=== PATIENT | female | born 1950 | race Caucasian/White ===

== ENCOUNTER 2017-05-05 16:07 | Observation (INO) ==
[2017-05-05] MEDS ORDERED: Aspirin 81 MG TAB.CHEW PO ONE (16:39)
[2017-05-05] MEDS ORDERED: Nitroglycerin 0.4 MG TAB.SUBL SL ONE (16:39)
--- NOTE | 2017-05-05 17:08 | Emergency Department Note ---
Disposition Clinical Impression: Lightheaded Chest pain Qualifiers: Chest pain type: unspecified Qualified Code(s): R07.9 - Chest pain, unspecified Diabetes Qualifiers: Diabetes mellitus type: type 2 Diabetes mellitus complication status: with unspecified complications Diabetes mellitus headrig sawyer insulin use: without headrig sawyer use Qualified Code(s): E11.8 - Type 2 diabetes mellitus with unspecified complications Hyperlipidemia Qualifiers: Hyperlipidemia type: unspecified Qualified Code(s): E78.5 - Hyperlipidemia, unspecified Hypertension Qualifiers: Hypertension type: unspecified Qualified Code(s): I10 - Essential (primary) hypertension Disposition: Admitted As Inpatient Condition: Fair Time of Disposition: 19:00 General Adult HPI - General Chief complaint: ED Dizziness Stated complaint: dizziness Time Seen by Provider: 05/05/17 16:11 Source: patient Mode of arrival: ambulatory Limitations: no limitations Nursing Notes Reviewed: Yes Vital Signs Reviewed: Yes - History of Present Illness HPI Narrative: 67-year-old female presents to the ED complaining of left upper quadrant burning as well as lightheadedness. Patient has a medical history of hypertension, diabetes and no cardiac issues. She did have a cardiac stress done done in 2016 which is normal. Patient stated that this happened patient and started about 3 weeks ago. Patient states recently she has changed primary care physicians as her normal one has retired. Upon seeing a new primary care physician she states that they were taken off her Ativan cold turkey which she is taking for many years for anxiety. She noticed since then she has noticed her symptoms she is complaining of today. Patient states she feels like she is "lightheaded" stating that the room is not spinning and she does not feel like she is spinning she notices this is occurring while she is eating and has what worsens or but it is a constant feeling. She does not know any nausea or vomiting or near syncope events. She states that she has not fell or had a trauma recently. She does state that she has a burning sensation in her left upper quadrant that has not gone away or does not tie with eating food. Patient states the pain does not radiate and is a 2 out of 10 she has not taken anything for the pain. She states that this does not feel like her gastric reflux disease. Patient states she has no pulmonary disease or cardiac disease that she knows of. She does check her blood pressure regularly and has noted it has been higher than normal in the 180s systolic over 100 diastolic. Patient is not having chest pain or shortness of breath this time. She states no headache or blurry vision, abdominal pain and constipation and diarrhea no pain with urination no pain or tingling going on the arms or legs. Patient having other complaints at this time. Pain Scale: 0 - Related Data Previous Rx's Medication Instructions Recorded Hydrocodone/Acetaminophen [Vicodin 1 each PO Q4H PRN #12 tab 07/25/16 Es 7.5-300 mg Tablet] Allergies Allergy/AdvReac Type Severity Reaction Status Date / Time No Known Allergies Allergy Verified 07/25/16 17:27 Review of Systems: Temperature is systems done and negative unless otherwise stated in history of present illness. All systems ED: reviewed and negative except as stated. Review of Systems: As Per HPI Constitutional: Denies: fever, weakness, weight change Cardiovascular: Denies: chest pain, dyspnea on exertion Respiratory: Denies: cough, dyspnea, wheezes Gastrointestinal: Denies: abdominal pain, nausea, vomiting Neurological: Denies: headache, weakness, numbness, paresthesias Endocrine: Denies: fatigue Past Medical History - Past Medical History Medical history: Reports: arthritis, diabetes, GERD, hyperlipidemia, hypertension, other [employer] history: Reports: bilateral tubal ligation - Social History Smoking Status: Never smoker Smokeless Tobacco Status: No Alcohol use: Reports: none Drug use: Reports: none Physical Exam - General Limitations: no limitations General appearance: alert - Head Head exam: atraumatic, normocephalic, normal inspection - Eye Eye exam: Present: normal appearance, PERRL, EOMI - ENT ENT exam: normal exam, normal oropharynx, mucous membranes moist - Neck Neck exam: Present: normal inspection, full ROM, trachea midline - Chest Chest inspection: Present: normal inspection - Respiratory Respiratory exam: Present: normal lung sounds bilaterally. Absent: respiratory distress, wheezes, accessory muscle use - Cardiovascular Cardiovascular exam: Present: regular rate, normal rhythm, normal heart sounds - Abdominal Exam Abdominal exam: Present: soft, Non-Tender. Absent: tenderness, distention, guarding, rebound, rigidity - Extremities Exam Extremities exam: Present: normal inspection, full ROM. Absent: tenderness, pedal edema - Back Exam Back exam: Present: normal inspection, full ROM. Absent: tenderness, CVA tenderness (R), CVA tenderness (L) - Neurological Exam Neurological exam: Present: alert, oriented X3, CN II-XII intact - Skin Skin exam: Present: warm, dry, intact, normal color Course Course Narrative: 67-year-old male presents to the ED for lightheadedness and left upper quadrant burning. Due to her vague symptoms as well as lightheadedness we decided to a cardiac evaluation was needed. We did an EKG, chest x-ray as well as basic labs including troponin, CMP as well as a CBC. We will also given nitroglycerin trial as she did have hydrated her blood pressure to see if that will help with her abdominal pain as well as her hypertension. We will give her aspirin as this could be cardiac in etiology. Patient is okay with this plan. Due to the symptoms and not having a cardiac history we will most likely admit the patient for further evaluation. We did explain this to the patient and she is okay with this plan. Vital Signs Temperature 98.9 F 05/05/17 16:21 Pulse Rate 92 05/05/17 16:21 Respiratory Rate 16 05/05/17 16:21 Blood Pressure 199/97 05/05/17 16:21 O2 Sat by Pulse Oximetry 96 05/05/17 16:21 Temperature 98.9 F 05/05/17 16:21 Pulse Rate 80 05/05/17 18:37 Respiratory Rate 16 05/05/17 19:20 Blood Pressure 166/86 05/05/17 19:20 O2 Sat by Pulse Oximetry 95 05/05/17 18:37 Oxygen Delivery Oxygen Delivery Room Air Medical Decision Making - [facility] Narrative Medical decision making narrative: 67-year-old female presents the ED with left upper quadrant pain as well as lightheadedness. After evaluating her more this is no syncopal cause were no signs of presyncope this is lightheadedness. There were no signs of vertigo. This most likely is due to her being hypertensive as we did have one documented blood pressure of 210/110. She has also recently changed her medications by adding a third high blood pressure medication and also cold turkey stopping Ativan approximately 3 weeks ago. I think a lot of this could be due to anxiety and causing the high blood pressure causing her lightheadedness. We cannot rule out here in the emergency department a cardiac event or angina. We did give her nitroglycerin emergency department which did help with her left upper quadrant pain as well as lower her blood pressure to 170/90. Patient states that she did feel better after taking that. We also gave her one aspirin. Chest x-ray was normal EKG had no acute findings. Her labs overall were within normal limits. I spoke with the hospitalist who agreed to accept the patient for further evaluation to the hospitalist service. I explained this to the patient. She is currently in no pain at this time. And her pressure is doing much better 170/90. Patient is okay with being admitted. Patient admitted to the hospitalist service in stable condition with normal vital signs outside of her hypertension. Chest X-Ray 05/05/17 16:39 IMPRESSION: No evidence of acute cardiopulmonary disease. D/ / Sourav Bonds MD / Sourav Bonds MD Interpreting Provider: Sourav Bonds MD - Medical Records Medical records reviewed: Yes I reviewed the patient's medical records. - Lab Data Lab results reviewed: Yes I reviewed the patient's lab results. Result diagrams: 05/05/17 16:54 05/05/17 16:54 Lab Results 05/05/17 05/05/17 05/05/17 Range/Units 16:54 16:54 16:54 WBC 10.2 (4.3-11.1) K/mcL RBC 5.22 H (3.82-4.97) M/mcL Hgb 15.1 (11.5-15.4) g/dL Hct 46.0 H (35.3-44.9) % MCV 88.1 (83.0-100.0) fL MCH 28.9 (28.0-33.3) pg MCHC 32.8 (31.6-35.5) g/dL RDW 13.3 (11.5-14.5) % Plt Count 265 (140-400) K/mcL MPV 9.3 L (9.4-12.4) fL Immature Gran % 0.6 (0-4) % Seg Neutrophils % 60.6 % Lymphocytes % 26.6 % Monocytes % 6.8 % Eosinophils % 4.1 % Basophils % 1.3 % Neutrophils # 6.2 (1.6-8.9) K/mcL Lymphocytes # 2.7 (0.6-4.6) K/mcL Monocytes # 0.7 (0.0-1.3) K/mcL Eosinophils # 0.4 (0.0-0.6) K/mcL Basophils # 0.1 (0.0-0.2) K/mcL PT 11.6 (9.4-12.1) Seconds INR 1.1 APTT 28.8 (26.0-36.0) Seconds Sodium 137 (136-145) mEq/L Potassium 3.7 (3.5-4.5) mEq/L Chloride 98 (98-109) mEq/L Carbon Dioxide 27 (19-29) mEq/L BUN 15 (7-20) mg/dL Creatinine 0.97 (0.57-1.11) mg/dL Est GFR ( Amer) > 60 (> 60) Est GFR (Non-Af Amer) 58 L (> 60) BUN/Creatinine Ratio 15 (6-26) Glucose 147 H (70-99) mg/dL Calculated Osmolality 288 (280-300) Calcium 9.6 (8.6-10.8) mg/dL Total Bilirubin 0.6 (0.2-1.2) mg/dL Direct Bilirubin 0.3 (0.0-0.5) mg/dL Indirect Bilirubin 0.3 (0.0-1.2) mg/dL AST 59 H (5-34) Units/L ALT 42 (0-55) Units/L Alkaline Phosphatase 82 (38-126) Units/L Troponin I (0-0.03) ng/mL Serum Total Protein 7.8 (6.0-8.3) g/dL Albumin 3.8 (3.5-5.0) g/dL Globulin 4.0 H (2.4-3.5) g/dL Albumin/Globulin Ratio 1.0 L (1.1-2.2) Lipase 14 (8-78) Units/L // Range/Units 16:54 WBC (4.3-11.1) K/mcL RBC (3.82-4.97) M/mcL Hgb (11.5-15.4) g/dL Hct (35.3-44.9) % MCV (83.0-100.0) fL MCH (28.0-33.3) pg MCHC (31.6-35.5) g/dL RDW (11.5-14.5) % Plt Count (140-400) K/mcL MPV (9.4-12.4) fL Immature Gran % (0-4) % Seg Neutrophils % % Lymphocytes % % Monocytes % % Eosinophils % % Basophils % % Neutrophils # (1.6-8.9) K/mcL Lymphocytes # (0.6-4.6) K/mcL Monocytes # (0.0-1.3) K/mcL Eosinophils # (0.0-0.6) K/mcL Basophils # (0.0-0.2) K/mcL PT (9.4-12.1) Seconds INR APTT (26.0-36.0) Seconds Sodium (136-145) mEq/L Potassium (3.5-4.5) mEq/L Chloride (98-109) mEq/L Carbon Dioxide (19-29) mEq/L BUN (7-20) mg/dL Creatinine (0.57-1.11) mg/dL Est GFR ( Amer) (> 60) Est GFR (Non-Af Amer) (> 60) BUN/Creatinine Ratio (6-26) Glucose (70-99) mg/dL Calculated Osmolality (280-300) Calcium (8.6-10.8) mg/dL Total Bilirubin (0.2-1.2) mg/dL Direct Bilirubin (0.0-0.5) mg/dL Indirect Bilirubin (0.0-1.2) mg/dL AST (5-34) Units/L ALT (0-55) Units/L Alkaline Phosphatase (38-126) Units/L Troponin I 0.00 (0-0.03) ng/mL Serum Total Protein (6.0-8.3) g/dL Albumin (3.5-5.0) g/dL Globulin (2.4-3.5) g/dL Albumin/Globulin Ratio (1.1-2.2) Lipase (8-78) Units/L - Radiology Data Radiology results reviewed: Yes I reviewed the patient's radiology results. Chest X-Ray 05/05/17 16:39 IMPRESSION: No evidence of acute cardiopulmonary disease. D/ / Sourav Bonds MD / Sourav Bonds MD Interpreting Provider: Sourav Bonds MD - EKG Data EKG #1 EKG attestation: Yes I reviewed and interpreted this EKG. EKG results narrative: EKG done at 1632 and reviewed on myself and the attending shows normal sinus rhythm at a rate of 92, NJ interval 164, QRS 89, QTC 428 with a normal axis. There are no signs of ST changes, T-wave changes. No signs of heart strain, heart block, hypertrophy. There is no old EKG to compare at this time. Overall impression is normal sinus rhythm with no acute changes. EKG shows normal: sinus rhythm, axis, intervals, QRS complexes, ST-T waves Rate: normal Rhythm: NSR Phillips/QRS: normal When compared to previous EKG there are: previous EKG unavailable Interpretation: no acute changes, normal EKG Attestation Statement - Attestation Attestation: I examined this patient and my medical decision-making was reviewed with the Resident Physician, Dr. Islas. I agree with the documented findings, disposition and treatment plan as described except to the extent set forth below. Patient is a 67-year-old white female with a history of hypertension, hyperlipidemia, and diabetes who presents to the emergency department with a three-week history of intermittent symptoms of epigastric and left upper quadrant burning discomfort that radiates into the chest associated with lightheadedness and "just not feeling well". Patient denies any associated diaphoresis, no syncope or near syncopal events, no nausea or vomiting. Patient states she was recently taken off her Ativan which she had taken chronically and was not tapered on this and instead changed to 2 other medications for sleep. Patient states since his meds were discontinued she has been having all these symptoms and trouble with her blood pressure. Patient was recently just started on an LUDIN inhibitor as well. Patient arrives with appearing uncomfortable, with significantly elevated blood pressure although denies any headaches, visual changes, no slurred speech or focal deficits, and no migratory pain. I agree patient's physical exam findings as documented. Patient's EKG showed slight sinus rhythm with no acute changes, poor R-wave progression but no acute ischemia. There is no old EKG for comparison. Patient received aspirin and nitroglycerin on arrival which improved her blood pressure and resolved her abdominal and chest discomfort. Patient had labs drawn and sent which overall unremarkable and negative troponin. Portal chest x -ray is unremarkable as well. At this time there are concerns for patient with atypical angina with these symptoms as well as her uncontrolled blood pressure. Unclear if the recent discontinuation of her chronic benzodiazepine use may have precipitated some of these events. Patient is pain-free currently with improvement in her vital signs and agrees with admission to the hospital for further cardiac evaluation. Case was discussed with the hospitalist [id number] who accepted the patient for admission for further testing.
[2017-05-05 17:13] LABS: Basophils # 0.1 K/mcL (0.0-0.2); Basophils % 1.3 %; Eosinophils # 0.4 K/mcL (0.0-0.6); Eosinophils % 4.1 %; Hemoglobin 15.1 g/dL (11.5-15.4); Immature Granulocytes % 0.6 % (0-4); Lymphocytes # 2.7 K/mcL (0.6-4.6); Lymphocytes % 26.6 %; Mean Corpuscular HGB Conc 32.8 g/dL (31.6-35.5); Mean Corpuscular Hemoglobin 28.9 pg (28.0-33.3); Mean Corpuscular Volume 88.1 fL (83.0-100.0); Mean Platelet Volume 9.3 fL (9.4-12.4); Monocytes # 0.7 K/mcL (0.0-1.3); Monocytes % 6.8 %; Neutrophils # 6.2 K/mcL (1.6-8.9); Platelet Count 265 K/mcL (140-400); Red Blood Count 5.22 M/mcL (3.82-4.97); Red Cell Distribution Width 13.3 % (11.5-14.5); Segmented Neutrophils % 60.6 %
[2017-05-05 17:21] LABS: Activated Partial Thrombo Time 28.8 Seconds (26.0-36.0)
[2017-05-05 17:28] LABS: INR 1.1; Prothrombin Time 11.6 Seconds (9.4-12.1)
[2017-05-05 17:29] LABS: Alanine Aminotransferase 42 Units/L (0-55); Albumin 3.8 g/dL (3.5-5.0); Alkaline Phosphatase 82 Units/L (38-126); Aspartate Amino Transferase 59 Units/L (5-34); BUN/Creatinine Ratio 15 (6-26); Bilirubin,Direct 0.3 mg/dL (0.0-0.5); Bilirubin,Indirect 0.3 mg/dL (0.0-1.2); Bilirubin,Total 0.6 mg/dL (0.2-1.2); Blood Urea Nitrogen 15 mg/dL (7-20); Calcium 9.6 mg/dL (8.6-10.8); Carbon Dioxide 27 mEq/L (19-29); Chloride 98 mEq/L (98-109); Glucose 147 mg/dL (70-99); Lipase 14 Units/L (8-78); Osmolality,Calculated 288 (280-300); Potassium 3.7 mEq/L (3.5-4.5); Sodium 137 mEq/L (136-145); Total Protein 7.8 g/dL (6.0-8.3); eGFR For African Americans > 60 (> 60); eGFR For Non-African Americans 58 (> 60)
[2017-05-05] MEDS ORDERED: Nitroglycerin 1 INCH/GM PACKET TP ONE (18:12)
[2017-05-05 19:27] LABS: Bilirubin,Urine Negative (Negative); Blood,Urine Negative (Negative); Clarity,Urine Clear (Clear); Color,Urine Yellow (Yellow); Glucose,Urine (UA) Normal (Normal); Ketones,Urine Negative (Negative); Leukocyte Esterase,Urine Small (Negative); Nitrite,Urine Negative (Negative); PH,Urine 6.5 pH Units (5.0-8.0); Protein,Urine Negative (Neg-Trace); Specific Gravity,Urine 1.009 (1.010-1.025); Urobilinogen,Urine Normal (Normal)
[2017-05-05 19:29] LABS: Bacteria,Urine None Seen per hpf (None-Few); Hyaline Casts,Urine None Seen per lpf (None-Few); RBC,Urine 0-3 per hpf (0-3); Squamous Epithelial Cell,Urine Moderate per lpf (None-Few)
[2017-05-05] MEDS ORDERED: Naloxone 0.4 MG/ML INJ IVP PRN (20:13)
[2017-05-05] MEDS ORDERED: Acetaminophen 325 MG TABLET PO PRN (20:13)
--- NOTE | 2017-05-05 21:02 | Internal Med History&Physical ---
<Tran Colon - Last Filed: 05/05/17 21:46> Date of Encounter: 05/05/17 Time of Encounter: 20:59 Assessment and Plan (1) Chest pain Current visit: Yes Status: Acute 1 patient has a history of hypertension diabetes hyperlipidemia she is morbidly obese she has been experiencing she describes as mid epigastric burning radiating upward. There are no aggravating or relieving factors as well as lightheadedness. Concerned this may be an anginal equivalent. Troponin is 0 continue to trend 2 we will obtain cardiac echo 3 continuous cardiac monitoring 4 continue with aspirin continue with statin, LUDIN beta traci 5) nitroglycerin as needed 6. Protonix IV 7 check lipids continue statin Qualifiers: Chest pain type: unspecified Qualified Code(s): R07.9 - Chest pain, unspecified (2) Diabetes Current visit: Yes Status: Acute Accu-Cheks before meals at bedtime sliding scale insulin hold metformin for now resumed at discharge 2 diabetic diet Qualifiers: Diabetes mellitus type: type 2 Diabetes mellitus complication status: with unspecified complications Diabetes mellitus longterm insulin use: without longterm use Qualified Code(s): E11.8 - Type 2 diabetes mellitus with unspecified complications (3) Hyperlipidemia Current visit: Yes Status: Acute We will check lipids and continue with statin Qualifiers: Hyperlipidemia type: unspecified Qualified Code(s): E78.5 - Hyperlipidemia , unspecified (4) Hypertension Current visit: Yes Status: Acute 1 patient has had episodes of elevated blood pressure presently she is controlled we will continue with home medications for now lisinopril atenolol Qualifiers: Hypertension type: unspecified Qualified Code(s): I10 - Essential (primary ) hypertension (5) Lightheaded Current visit: Yes Status: Acute 1 patient has been off benzodiazepine for approximately 5 weeks, concerning symptoms may be related to anxiety. We will obtain orthostatic vital signs 2. Fall precautions 3 she is on Lexapro which she has only taken approximately a week. We will continue for now (6) DVT prophylaxis Current visit: Yes Status: Acute Lovenox subcutaneous Internal Medicine - H&P: HPI Chief complaint: Lightheaded Admitted From: Emergency Dept Plans for Post Hospital Care: Home History of present illness: Ms. Conroy is a 67 year old female presents with history of hypertension diabetes , anxiety/depression. Patient has been experiencing mid epigastric pain described as burning that radiates upward as well as lightheadedness. She has been expensive symptoms off and on for the past 3 weeks. She states lightheadedness occurs while she is eating, denies any lightheadedness or positional changes or feeling of spinning. She denies any recent falls or head trauma. The burning in her epigastric area comes and goes Associated with Eating Is Nonradiating Dull to 10 It Resolves on Its Own. She Does Note That Her Blood Pressure Has Been Elevated at Times during the Pain She States Does Not Feel like Gastric Reflux. There Is No Aggravating or Relieving Factors. She Denies Any past cardiac history she did have a cardiac stress test done 2016 which she states was normal. She denies any vision changes headaches or epistaxis. She denies any shortness of breath is vomiting diarrhea numbness or tingling. She states that she has recently changed primary care physicians and that she has been on Ativan for years. Her new physician took her off the Ativan and placed her on Lexapro and Ambien. She has been on these medications for approximately a week She presented to the ER with the above complaints. Apparently upon presentation she did have a hypertensive episode with a blood pressure 210/110 . She was given nitroglycerin she states that it did help however the epigastric pain was relieving on its own prior to the administration of nitroglycerin. She was also given aspirin. Lab work was unremarkable chest x-ray no acute process EKG was normal sinus rhythm. Concerned this may be anginal equivalent she has been admitted for further workup and evaluation. Presently the patient denies any pain discomfort. She does appear in respiratory distress. Lung sounds are clear heart sounds are regular S1 and S2 with no CLICKS or murmurs noted abdomen is obese soft nontender to palpation. No pedal edema. She is hemodynamically stable at this time. Review this case with Dr. Jaimes who agrees with plan 6 Past Med Surg Social Fam HX - Past Medical History Medical history: arthritis, diabetes, GERD, hyperlipidemia, hypertension, other Psychiatric history: anxiety - Past Surgical History Surgical History: appendectomy, cholecystectomy - Social History Smoking Status: Never smoker Smokeless Tobacco Status: No Alcohol use: none Drug use: none - Family History Mother Age: 56 Living Status: Hx Family Cardiac Disorders: Yes (CHF) Father Living Status: Hx Family Cardiac Disorders: Yes Hx Family Endocrine Disorder: Yes Sister Living Status: Hx Family Cancer: Yes Daughter Living Status: Age at : 40 Cause of : PE Internal Medicine - H&P: Meds Hydrocodone/Acetaminophen [Vicodin Es 7.5-300 mg Tablet] 1 each PO Q4H PRN #12 tab 07/25/16 [Rx] Allopurinol [Zyloprim 100 MG] 100 mg PO BID 05/05/17 [History] Atenolol 100 mg PO DAILY 05/05/17 [History] Escitalopram [Lexapro] 1 tab PO DAILY 05/05/17 [History] Fenofibrate Nanocrystallized [Triglide] 160 mg PO DAILY 05/05/17 [History] Glimepiride [Amaryl] 2 mg PO DAILY 05/05/17 [History] Lisinopril [Zestril] 20 mg PO DAILY 05/05/17 [History] Losartan Potassium [Cozaar] 100 mg PO DAILY 05/05/17 [History] Meloxicam [Mobic] 7.5 mg PO DAILY 05/05/17 [History] Metformin HCl [Metformin HCl ER] 1 cap PO QID 05/05/17 [History] Omeprazole [PriLOSEC] 40 mg PO DAILY 05/05/17 [History] Triamterene/HCTZ 37.5/25mg [Dyazide] 1 tab PO DAILY 05/05/17 [History] Zolpidem [Ambien] 10 mg PO HS 05/05/17 [History] metroNIDAZOLE [Metronidazole] 500 mg PO BID 05/05/17 [History] 3 Allergy/AdvReac Type Severity Reaction Status Date / Time No Known Allergies Allergy Verified 07/25/16 17:27 All Systems PM: A 10-system review of systems was performed and is negative for pertinent findings except as documented above in the HPI. - Constitutional Constitutional: no chills, no fever(s), no night sweats - EENT Eyes: no change in vision, no discharge, no pain, no photophobia Nose, mouth and throat: no dysphagia, no nasal discharge, no neck pain, no sore throat - Cardiovascular Cardiovascular ROS IM: no chest pain, no diaphoresis, no dyspnea, no lightheadedness, no palpitations, no syncope - Respiratory Respiratory: no cough, no dyspnea, no wheezing, no excessive phlegm production - Gastrointestinal Gastrointestinal: abdominal pain, dyspepsia, no diarrhea, no hematemesis, no hematochezia, no melena, no nausea, no vomiting - Genitourinary Genitourinary: no change in urinary stream, no dysuria, no flank pain, no hematuria - Musculoskeletal Musculoskeletal ROS IM: no numbness, no tingling - Integumentary Integumentary IM: no rash, no unusual bruising - Neurological Neurological ROS: no confusion, no convulsions, no focal weakness, no numbness, no tingling, no tremor(s) - Hematologic/Lymphatic Hematologic/Lymphatic: no easy bruising - Constitutional Vitals: Temp Pulse Resp BP Pulse Ox 98.4 F 90 19 149/84 98 05/05/17 20:19 05/05/17 20:19 05/05/17 20:19 05/05/17 20:19 05/05/17 20:19 General appearance: Present: A&O X 3, morbidly obese - Head Head exam: Present: atraumatic, normocephalic - Eye Eye exam: Present: PERRL, conjuntiva pink, sclera anicteric Pupils: Present: PERRL - Neck Neck exam general surgery: Present: supple, trachea midline. Absent: lymphadenopathy - Respiratory Respiratory exam: Present: CTAB. Absent: accessory muscle use, rales, rhonchi, wheezes - Cardiovascular Cardiovascular exam: Present: RRR, +S1, +S2. Absent: diastolic murmur, gallop, rubs, systolic murmur - GI/Abdominal GI/Abdominal exam: Present: normal bowel sounds, soft, no peritoneal signs. Absent: distended, tenderness - Extremities Exam Extremities exam: Present: warm, radial pulses palpable and symmetrical. Absent : calf tenderness, cyanotic, pedal edema - Neurological Exam Neurological exam: Present: CN II-XII intact, oriented X3, no focal deficits. Absent: pronater drift, facial droop, speech deficit - Skin Skin exam: Present: dry, intact Internal Med - H&P Results - Labs CBC & Chem 7: 05/05/17 16:54 05/05/17 16:54 Labs: Urine 05/05/17 Range/Units 19:23 Urine Color Yellow (Yellow) Urine Clarity Clear (Clear) Urine pH 6.5 (5.0-8.0) pH Units Ur Specific [place] 1.009 L (1.010-1.025) Urine Protein Negative (Neg-Trace) mg/dL Urine Glucose (UA) Normal (Normal) mg/dL - Diagnostic Studies Other Images Additional comments: Chest X-Ray 05/05/17 16:39 IMPRESSION: No evidence of acute cardiopulmonary disease. D/ / Sourav Bonds MD / Sourav Bonds MD Interpreting Provider: Sourav Bonds MD <[email or web address] alcantar - Last Filed: 05/05/17 22:47> Date of Encounter: 05/05/17 Internal Medicine - H&P: HPI History of present illness: Ms. Conroy is a 67 year old female All Systems PM: A 10-system review of systems was performed and is negative for pertinent findings except as documented above in the HPI. - Constitutional Vitals: Temp Pulse Resp BP Pulse Ox 98.4 F 94 19 160/84 98 05/05/17 20:19 05/05/17 21:18 05/05/17 20:19 05/05/17 21:18 05/05/17 20:19 Internal Med - H&P Results - Labs CBC & Chem 7: 05/05/17 16:54 05/05/17 16:54 Labs: Urine 05/05/17 Range/Units 19:23 Urine Color Yellow (Yellow) Urine Clarity Clear (Clear) Urine pH 6.5 (5.0-8.0) pH Units Ur Specific [place] 1.009 L (1.010-1.025) Urine Protein Negative (Neg-Trace) mg/dL Urine Glucose (UA) Normal (Normal) mg/dL - Attending Attestation I examined this patient and my medical decision-making was reviewed with the Resident Physician. I agree with the documented findings, disposition and treatment plan as described except to the extent set forth below. Patient is a 66-year-old female with past medical history of arthritis, diabetes , GERD, hyperlipidemia, anxiety and hypertension. Presents to the ED with complaints of lightheadedness. She has also been experiencing mild epigastric pain and burning sensation. Orthostatic vitals are within normal limits. Patient has hemodynamic stable. Her blood pressure is elevated. Lightheadedness possibly related to anxiety. Patient states she has been off and denies pain for about 4-5 weeks. She has no other acute complaints at this time. EKG shows normal sinus rhythm with no acute ST-T changes. Troponin is negative. Heart rate 94, blood pressure 149/84, O2 sat 98% on room air. Heart S1-S2 positive no murmurs or rubs. Lungs bilateral good entry no wheeze or crackle. Abdomen soft nontender. Extremity is all pulse strong. No edema.
[2017-05-05] MEDS ORDERED: *HR* Dextrose 50 % in Water (Syg) 50 ML SYRINGE IVP PRN (21:13)
[2017-05-05] MEDS ORDERED: Dextrose Gel 15 GM PO PRN ×2 (21:13)
[2017-05-05] MEDS ORDERED: D5% in Water 1,000 ML IVC PRN (21:13)
[2017-05-05] MEDS ORDERED: Lisinopril 20 MG TABLET PO SCH (22:00)
[2017-05-05] MEDS: Fenofibrate 54 MG TABLET PO SCH (22:09)
[2017-05-06 05:56] LABS: Basophils # 0.1 K/mcL (0.0-0.2); Basophils % 1.1 %; Eosinophils # 0.5 K/mcL (0.0-0.6); Eosinophils % 4.4 %; Hematocrit 42.3 % (35.3-44.9); Hemoglobin 14.1 g/dL (11.5-15.4); Immature Granulocytes % 0.5 % (0-4); Lymphocytes # 3.2 K/mcL (0.6-4.6); Mean Corpuscular HGB Conc 33.3 g/dL (31.6-35.5); Mean Corpuscular Hemoglobin 29.5 pg (28.0-33.3); Mean Corpuscular Volume 88.5 fL (83.0-100.0); Mean Platelet Volume 9.2 fL (9.4-12.4); Monocytes # 0.9 K/mcL (0.0-1.3); Monocytes % 7.8 %; Neutrophils # 6.3 K/mcL (1.6-8.9); Platelet Count 270 K/mcL (140-400); Red Blood Count 4.78 M/mcL (3.82-4.97); Red Cell Distribution Width 13.4 % (11.5-14.5); Segmented Neutrophils % 57.2 %
[2017-05-06 06:09] LABS: BUN/Creatinine Ratio 18 (6-26); Blood Urea Nitrogen 15 mg/dL (7-20); Calcium 9.4 mg/dL (8.6-10.8); Carbon Dioxide 30 mEq/L (19-29); Chloride 99 mEq/L (98-109); Chol/HDL Ratio 4.8 (0-4.9); Cholesterol 179 mg/dL (< 200); Glucose 154 mg/dL (70-99); HDL Cholesterol 37 mg/dL (40-59); LDL Cholesterol,Calculated 124 mg/dL (0-99); Magnesium 1.8 mg/dL (1.6-2.6); Osmolality,Calculated 290 (280-300); Potassium 3.7 mEq/L (3.5-4.5); Sodium 138 mEq/L (136-145); Triglycerides 92 mg/dL (< 150); eGFR For African Americans > 60 (> 60); eGFR For Non-African Americans > 60 (> 60)
[2017-05-06] MEDS: *HR* Enoxaparin 40 MG/0.4 ML SYRINGE SQ SCH (06:27)
[2017-05-06] MEDS: Insulin LISPRO 300 UNITS/3 ML VIAL SQ SCH ×3 (09:33→17:49)
[2017-05-06] MEDS: Pantoprazole 40 MG VIAL IVP SCH (09:34)
[2017-05-06] MEDS: Aspirin 81 MG TAB.CHEW PO SCH (09:34)
[2017-05-06] MEDS ORDERED: Perflutren Lipid Microsphere 1.3 ML in 0.9 % Sodium Chloride 8.7 ML IVP ONE (10:57)
[2017-05-06] MEDS ORDERED: *HR* LORazepam 1 MG TABLET PO ONE (14:48)
[2017-05-06] MEDS ORDERED: *HR* LORazepam 1 MG TABLET PO PRN (14:49)
--- NOTE | 2017-05-06 17:03 | Internal Med Progress Note ---
Date of Encounter: 05/06/17 Time of Encounter: 14:00 - Assessment and plan (1) Chest pain Current Visit: Yes Status: Acute Assessment and plan: Most likely due to GI source. PPI ordered. Will try to get results from last stress test (she was told it was good). NPO tonight. Will get GI consult in AM. Echo OK. Qualifiers: Chest pain type: other chest pain Qualified Code(s): R07.89 - Other chest pain; R07.8 - Other chest pain (2) Hypertension Current Visit: Yes Status: Chronic Assessment and plan: Not well controlled. Currently on 4 agents (Atenolol, Dyazide, Lisinopril and Cozaar). She is on max doses of Atenolol and Cozaar. Lisinopril just added by PCP. Will increase Lisinopril while monitoring renal function. Needs further HTN workup. Qualifiers: Hypertension type: essential hypertension Qualified Code(s): I10 - Essential (primary) hypertension (3) Diabetes Current Visit: Yes Status: Chronic Assessment and plan: Continue to monitor blood sugars and cover. Qualifiers: Diabetes mellitus type: type 2 Diabetes mellitus complication status: with hyperglycemia Diabetes mellitus extermination supervisor insulin use: without alf use Qualified Code(s): E11.65 - Type 2 diabetes mellitus with hyperglycemia (4) Hyperlipidemia Current Visit: Yes Status: Chronic Assessment and plan: Lipid profile was done today. Qualifiers: Hyperlipidemia type: pure hyperglyceridemia Qualified Code(s): E78.1 - Pure hyperglyceridemia (5) Anxiety Current Visit: Yes Status: Chronic Assessment and plan: Was on extermination supervisor BID Ativan and it had been recently stopped and Lexapro given. Will restart Ativan here in hospital. (6) Lightheaded Current Visit: Yes Status: Resolved Assessment and plan: ? med related. - Subjective Interval history: Ms. Conroy is currently in observation for chest/abdominal discomfort. Ms. Conroy continues to have some episodes of "burning" in her upper abdomen and chest. No diaphoresis or nausea. No dyspnea. Has prior hx of GERD but has been off meds. She feels this is her stomach causing the issue. She has also been having difficulty eating over the last few weeks - tries to eat and gets nauseated. Had cholecystectomy in past. Had a treadmill nuclear stress test at [facility] in the last year (agrees to record release). Also has a lot of eructation when she lifts her arms up. - Constitutional Vitals: Temp Pulse Resp BP Pulse Ox 98.3 F 74 15 172/78 94 05/06/17 13:05 05/06/17 13:05 05/06/17 13:05 05/06/17 13:05 05/06/17 13:05 General appearance: Present: A&O X 3, morbidly obese, pleasant, answers questions appropriately - Head Head exam: Present: normocephalic - Eye Eye exam: Present: EOMI, conjuntiva pink - ENT ENT exam: Present: mucous membranes moist - Respiratory Respiratory exam: Present: CTAB. Absent: rales, rhonchi, wheezes - Cardiovascular Cardiovascular exam: Present: distant heart sounds, RRR. Absent: tachycardia - GI/Abdominal GI/Abdominal exam: Present: soft. Absent: tenderness - Extremities Exam Extremities exam: Present: warm. Absent: tenderness - Neurological Exam Neurological exam: Present: alert, oriented X3, no focal deficits - Skin Skin exam: Present: dry, warm. Absent: rash Internal Medicine: Result - Labs CBC & Chem 7: 05/06/17 05:06 05/06/17 05:06 Labs: Short CBC 05/06/17 Range/Units 05:06 WBC 11.0 (4.3-11.1) K/mcL Hgb 14.1 (11.5-15.4) g/dL Hct 42.3 (35.3-44.9) % Plt Count 270 (140-400) K/mcL Neutrophils # 6.3 (1.6-8.9) K/mcL BMP 05/06/17 05:06 Sodium 138 Potassium 3.7 Chloride 99 Carbon Dioxide 30 H BUN 15 Creatinine 0.84 Glucose 154 H Calcium 9.4 Cardiac Enzymes 05/05/17 05/06/17 Range/Units 22:28 05:06 Troponin I 0.01 0.01 (0-0.03) ng/mL Urine 05/05/17 Range/Units 19:23 Urine Color Yellow (Yellow) Urine Clarity Clear (Clear) Urine pH 6.5 (5.0-8.0) pH Units Ur Specific [place] 1.009 L (1.010-1.025) Urine Protein Negative (Neg-Trace) mg/dL Urine Glucose (UA) Normal (Normal) mg/dL - ABG Interpretation ABG results: PT/INR, D-dimer PT 11.6 Seconds (9.4-12.1) 05/05/17 16:54 - Impressions Impressions Echocardiogram 05/05/17 20:48 Impressions: Technically sub-optimal due to poor echocardiographic windows. LVEF 55-60%. Normal LV chamber size, wall thickness and function. Mild left ventricular diastolic dysfunction. Grossly, mildly dilated right ventricle with normal function. Moderate pulmonary hypertension. Estimated RVSP is 51 mmHg. No obvious significant valvular dysfunction. Left Ventricular Wall Motion: Rest Echo Findings All wall segments showed normal motion. Findings: Study Quality * Technically sub-optimal due to poor echocardiographic windows. ECG Findings * Normal sinus rhythm. Left Ventricle * LVEF 55-60%. * Normal LV chamber size, wall thickness and function. * Mild left ventricular diastolic dysfunction. Right Ventricle * Grossly, mildly dilated right ventricle with normal function. Left Atrium * Mildly dilated left atrium. Right Atrium * Right atrium is not well visualized. Interatrial Septum * Interatrial septum not well evaluated. Aortic Valve * Aortic valve not well visualized. * No aortic regurgitation. * No aortic stenosis. Mitral Valve * Normal mitral valve structure and function. * No mitral regurgitation. * No mitral stenosis. Tricuspid Valve * Normal tricuspid valve structure and function. * Trace tricuspid regurgitation. * Moderate pulmonary hypertension. * Estimated RVSP is 51 mmHg. * Estimated RA pressure is assumed to be at least 5 mmHg. Pulmonic Valve * Pulmonic valve is not well visualized. Aorta * Normally sized aortic root. Pericardium * The pericardium appears normal. IVC * Normal IVC dimensions and inspiratory collapse. Pulmonary Artery * Normal visualized portions of the main pulmonary artery. Consult Discharge Plan - Plan Referrals: NONE,PCP [Primary Care Provider] -
[2017-05-06] MEDS ORDERED: Insulin LISPRO 300 UNITS/3 ML VIAL SQ SCH (21:00)
[2017-05-06] MEDS: Fenofibrate 54 MG TABLET PO SCH (22:58)
[2017-05-06] MEDS: Lisinopril 20 MG TABLET PO SCH (22:58)
[2017-05-07 03:58] LABS: Hematocrit 45.3 % (35.3-44.9); Hemoglobin 14.6 g/dL (11.5-15.4); Mean Corpuscular HGB Conc 32.2 g/dL (31.6-35.5); Mean Corpuscular Hemoglobin 28.4 pg (28.0-33.3); Mean Corpuscular Volume 88.1 fL (83.0-100.0); Mean Platelet Volume 9.1 fL (9.4-12.4); Platelet Count 302 K/mcL (140-400); Red Blood Count 5.14 M/mcL (3.82-4.97); Red Cell Distribution Width 13.3 % (11.5-14.5)
[2017-05-07 04:06] LABS: Calcium 9.6 mg/dL (8.6-10.8); Magnesium 1.9 mg/dL (1.6-2.6)
[2017-05-07] MEDS: *HR* Enoxaparin 40 MG/0.4 ML SYRINGE SQ SCH (06:31)
[2017-05-07] MEDS: Aspirin 81 MG TAB.CHEW PO SCH (08:22)
[2017-05-07] MEDS: Insulin LISPRO 300 UNITS/3 ML VIAL SQ SCH ×2 (08:26→12:37)
[2017-05-07] MEDS: Pantoprazole 40 MG VIAL IVP SCH (08:27)
[2017-05-07] MEDS: Lisinopril 20 MG TABLET PO SCH (08:27)
--- NOTE | 2017-05-07 09:02 | Internal Med Progress Note ---
<Alan Perez - Last Filed: 05/07/17 12:27> Date of Encounter: 05/07/17 Time of Encounter: 09:02 - Assessment and plan (1) Abdominal discomfort Current Visit: Yes Status: Acute Assessment and plan: Upon questioning, patient elicited history suggestive of more epigastric to periumbilical abdominal burning with radiation up into her mid chest. Continue with Protonix. -GI consulted for possible egd. (2) Chest pain Current Visit: Yes Status: Acute Assessment and plan: Likely GI in origin. Atypical chest pain. Last stress in 2016 reportedly normal. EKG revealed normal sinus rhythm. Troponins negative 0.00, 0.01, 0.01 Echo revealed LVEF 55-60%, normal LV, mild LV diastolic dysfunction, mildly dilaterd RV, moderate pulmonary hypertension with RVSP 51mmHG, no valvular dysfunction. -GI consulted this morning. -Continue protonix. Qualifiers: Chest pain type: other chest pain Qualified Code(s): R07.89 - Other chest pain; R07.8 - Other chest pain (3) GERD (gastroesophageal reflux disease) Current Visit: Yes Status: Chronic Assessment and plan: Known histroy of gerd. Was taken off of PPI prior to admission. Improvement of symptoms since admission with treatment. -Continue protonix. -GI consulted. Qualifiers: Esophagitis presence: esophagitis presence not specified Qualified Code(s) : K21.9 - Gastro-esophageal reflux disease without esophagitis (4) Anxiety Current Visit: Yes Status: Chronic Assessment and plan: Was on rodent exterminator BID Ativan and it had been recently stopped and Lexapro given. -Restarted Ativan, continue with 1mg bid prn. Likely underlying etiology of lightheadedness, improvement since restarting medication. (5) Lightheaded Current Visit: Yes Status: Resolved Assessment and plan: Lightheadedness improved after restarting Ativan. Likely related to anxiety and anxiety related to health. (6) Hypertension Current Visit: Yes Status: Chronic Assessment and plan: Bp 133/69 overnight. -Continue atenolol, dyazide, lisinopril, and cozaar. Increased lisinopril yesterday with improvement in bp -Continue following vitals. Qualifiers: Hypertension type: essential hypertension Qualified Code(s): I10 - Essential (primary) hypertension (7) Diabetes Current Visit: Yes Status: Chronic Assessment and plan: Known history of diabetes. Continue insulin per protocol. Qualifiers: Diabetes mellitus type: type 2 Diabetes mellitus complication status: with hyperglycemia Diabetes mellitus rodent exterminator insulin use: without alf use Qualified Code(s): E11.65 - Type 2 diabetes mellitus with hyperglycemia (8) Hyperlipidemia Current Visit: Yes Status: Chronic Assessment and plan: Known histroy of hyperlipidemia. -Continue home medication for chronic disease management. Qualifiers: Hyperlipidemia type: pure hyperglyceridemia Qualified Code(s): E78.1 - Pure hyperglyceridemia - Subjective Interval history: Patient reports doing well this morning, still having some abdominal discomfort and burning up into chest but much improved overnight and since admission. Patient is also still complaining of increased eructation and is able to elicit quite a bit when raising her arms. Upon further questioning the patient reports that she cannot eat. She denies dysphagia, odynophagia, globus sensation , or consistent nausea with eating. Further clarification is that she sometimes feels hungry but is "afraid" that she will get sick, aka burning if she eats. Patient reports the protonix has been helping quite a bit. Patient also report resoution of lightheadedness and dizziness since admission. Denies fevers, chills, sweats, chest pain or pressure, shortness of breath, headaches, lightheadedness, dizziness, abdominal "pain", changes in bowels or bladder, weakness, or loss of sensation. - Constitutional Vitals: Temp Pulse Resp BP Pulse Ox 98.0 F 69 15 133/69 96 05/07/17 07:04 05/07/17 07:04 05/07/17 07:04 05/07/17 07:04 05/07/17 07:04 General appearance: Present: A&O X 3, morbidly obese, pleasant, no acute distress, answers questions appropriately - Head Head exam: Present: atraumatic, normal inspection, normocephalic - Eye Eye exam: Present: EOMI, normal appearance - ENT ENT exam: Present: mucous membranes moist, normal exam, normal oropharynx - Neck Neck exam general surgery: Present: full ROM, normal inspection, trachea midline - Respiratory Respiratory exam: Present: CTAB. Absent: rales, rhonchi, wheezes - Cardiovascular Cardiovascular exam: Present: RRR, +S1, +S2. Absent: JVD, systolic murmur - GI/Abdominal GI/Abdominal exam: Present: normal bowel sounds, soft. Absent: distended, guarding, tenderness - Extremities Exam Extremities exam: Present: full ROM, normal inspection, warm. Absent: pedal edema, tenderness - Neurological Exam Neurological exam: Present: alert, oriented X3, no focal deficits, strengths equal and symetr throughout. Absent: facial droop, speech deficit - Psychiatric Psychiatric exam: Present: anxious, normal affect - Skin Skin exam: Present: dry, intact, normal color, warm. Absent: rash Internal Medicine: Result - Labs CBC & Chem 7: 05/07/17 03:25 05/07/17 03:25 Labs: Short CBC 05/07/17 Range/Units 03:25 WBC 11.4 H (4.3-11.1) K/mcL Hgb 14.6 (11.5-15.4) g/dL Hct 45.3 H (35.3-44.9) % Plt Count 302 (140-400) K/mcL BMP 05/07/17 03:25 Sodium 136 Potassium 4.0 Chloride 96 L Carbon Dioxide 30 H BUN 14 Creatinine 1.16 H Glucose 146 H Calcium 9.6 - ABG Interpretation ABG results: PT/INR, D-dimer PT 11.6 Seconds (9.4-12.1) 05/05/17 16:54 - Impressions Impressions Echocardiogram 05/05/17 20:48 Impressions: Technically sub-optimal due to poor echocardiographic windows. LVEF 55-60%. Normal LV chamber size, wall thickness and function. Mild left ventricular diastolic dysfunction. Grossly, mildly dilated right ventricle with normal function. Moderate pulmonary hypertension. Estimated RVSP is 51 mmHg. No obvious significant valvular dysfunction. Left Ventricular Wall Motion: Rest Echo Findings All wall segments showed normal motion. Findings: Study Quality * Technically sub-optimal due to poor echocardiographic windows. ECG Findings * Normal sinus rhythm. Left Ventricle * LVEF 55-60%. * Normal LV chamber size, wall thickness and function. * Mild left ventricular diastolic dysfunction. Right Ventricle * Grossly, mildly dilated right ventricle with normal function. Left Atrium * Mildly dilated left atrium. Right Atrium * Right atrium is not well visualized. Interatrial Septum * Interatrial septum not well evaluated. Aortic Valve * Aortic valve not well visualized. * No aortic regurgitation. * No aortic stenosis. Mitral Valve * Normal mitral valve structure and function. * No mitral regurgitation. * No mitral stenosis. Tricuspid Valve * Normal tricuspid valve structure and function. * Trace tricuspid regurgitation. * Moderate pulmonary hypertension. * Estimated RVSP is 51 mmHg. * Estimated RA pressure is assumed to be at least 5 mmHg. Pulmonic Valve * Pulmonic valve is not well visualized. Aorta * Normally sized aortic root. Pericardium * The pericardium appears normal. IVC * Normal IVC dimensions and inspiratory collapse. Pulmonary Artery * Normal visualized portions of the main pulmonary artery. Consult Discharge Plan - Plan Referrals: NONE,PCP [Primary Care Provider] - <Thai Stewart - Last Filed: 05/07/17 16:45> Date of Encounter: 05/07/17 - Assessment and plan (1) Chest pain Current Visit: Yes Status: Acute Qualifiers: Chest pain type: other chest pain Qualified Code(s): R07.89 - Other chest pain; R07.8 - Other chest pain (2) Hypertension Current Visit: Yes Status: Chronic Qualifiers: Hypertension type: essential hypertension Qualified Code(s): I10 - Essential (primary) hypertension (3) Diabetes Current Visit: Yes Status: Chronic Qualifiers: Diabetes mellitus type: type 2 Diabetes mellitus complication status: with hyperglycemia Diabetes mellitus alf insulin use: without rodent exterminator use Qualified Code(s): E11.65 - Type 2 diabetes mellitus with hyperglycemia (4) Hyperlipidemia Current Visit: Yes Status: Chronic Qualifiers: Hyperlipidemia type: pure hyperglyceridemia Qualified Code(s): E78.1 - Pure hyperglyceridemia (5) Anxiety Current Visit: Yes Status: Chronic (6) Lightheaded Current Visit: Yes Status: Resolved - Constitutional Vitals: Temp Pulse Resp BP Pulse Ox 98.2 F 71 16 171/86 96 05/07/17 14:28 05/07/17 14:28 05/07/17 14:28 05/07/17 14:28 05/07/17 14:28 Internal Medicine: Result - Labs CBC & Chem 7: 05/07/17 03:25 05/07/17 03:25 Labs: Short CBC 05/07/17 Range/Units 03:25 WBC 11.4 H (4.3-11.1) K/mcL Hgb 14.6 (11.5-15.4) g/dL Hct 45.3 H (35.3-44.9) % Plt Count 302 (140-400) K/mcL BMP 05/07/17 03:25 Sodium 136 Potassium 4.0 Chloride 96 L Carbon Dioxide 30 H BUN 14 Creatinine 1.16 H Glucose 146 H Calcium 9.6 - ABG Interpretation ABG results: PT/INR, D-dimer PT 11.6 Seconds (9.4-12.1) 05/05/17 16:54 - Attending Attestation Please see discharge summary of this date.
--- NOTE | 2017-05-07 14:06 | Gastroenterology Consult Note ---
<Chio Escobar - Last Filed: 05/07/17 14:52> Date of Encounter: 05/07/17 Time of Encounter: 14:02 - Assessment and plan (1) Chest pain Status: Acute Assessment and plan: atypical chest pain with burning epigastric pain. patient states she had negative stress testing done last year. cardiac work up negative thus far Plan NPO continue IV PPI further recs following EGD Qualifiers: Chest pain type: other chest pain Qualified Code(s): R07.89 - Other chest pain; R07.8 - Other chest pain - Time Spent With Patient Total time spent is greater than 50% in coordination of care (as documented) at patient's floor/unit and/or counseling patient: GI History of Present Illness - Data of Consult Consult date: 05/07/17 Requesting Physician: Thai Stewart DO - Consult Narrative History of present illness: Ms. Conroy is a 67 year old female with PMHx of HTN, Dm, anxiety, depression, GERD, HLD. patient arrived to [facility] with chief complaint of mid epigastric pain that she describes as a burning sensation that radiates upwards. she also complains of lightheadedness. These symptoms have been going on for about three weeks. patient does have history of chest pain with prior stress test in 2016. Gi service was consulted for probable Gi chest pain and for possible EGD. patient denies nausea, vomiting, diarrhea, fever, chills, chest pain, shortness of breath, hematuria, hematochezia, melena. She states she had stress testing done one year ago that she was told was negative. she denies any further issues today. Past Med Surg Social Fam HX - Past Medical History Medical history: arthritis, diabetes, GERD, hyperlipidemia, hypertension, other Psychiatric history: anxiety - Past Surgical History Surgical History: appendectomy, cholecystectomy - Social History Smoking Status: Never smoker Smokeless Tobacco Status: No Alcohol use: none Drug use: none - Family History Mother Age: 56 Living Status: Hx Family Cardiac Disorders: Yes (CHF) Father Living Status: Hx Family Cardiac Disorders: Yes Hx Family Endocrine Disorder: Yes Sister Living Status: Hx Family Cancer: Yes Daughter Living Status: Age at : 40 Cause of : PE All systems PM: reviewed and no additional remarkable complaints except as stated - Constitutional Vitals: Temp Pulse Resp BP Pulse Ox 98.0 F 69 15 133/69 96 05/07/17 07:04 05/07/17 07:04 05/07/17 07:04 05/07/17 07:04 05/07/17 07:04 General appearance: Present: A&O X 3, pleasant, no acute distress Exam: morbidly obese - Head Head exam: Present: atraumatic, normocephalic - Respiratory Respiratory exam: Present: CTAB - Cardiovascular Cardiovascular exam: Present: RRR, +S1, +S2 - GI/Abdominal GI/Abdominal exam: Present: normal bowel sounds, soft. Absent: distended, tenderness - Extremities Exam Extremities exam: Absent: cyanotic, pedal edema - Neurological Exam Neurological exam: Present: alert, oriented X3, no focal deficits - Psychiatric Psychiatric exam: Present: normal affect, normal mood - Skin Skin exam: Present: intact Results - Labs CBC & Chem 7: 05/07/17 03:25 05/07/17 03:25 Labs: Last Result Calcium 9.6 mg/dL (8.6-10.8) 05/07/17 03:25 Troponin I 0.01 ng/mL (0-0.03) 05/06/17 05:06 Triglycerides 92 mg/dL (< 150) 05/06/17 05:06 Entire Visit Hgb 14.6 g/dL (11.5-15.4) 05/07/17 03:25 Hct 45.3 % (35.3-44.9) H 05/07/17 03:25 PT 11.6 Seconds (9.4-12.1) 05/05/17 16:54 Total Bilirubin 0.6 mg/dL (0.2-1.2) 05/05/17 16:54 AST 59 Units/L (5-34) H 05/05/17 16:54 ALT 42 Units/L (0-55) 05/05/17 16:54 Lipase 14 Units/L (8-78) 05/05/17 16:54 - ABG ABG results: PT/INR, D-dimer PT 11.6 Seconds (9.4-12.1) 05/05/17 16:54 Consult Discharge Plan - Plan Referrals: NONE,PCP [Primary Care Provider] - Prescriptions: amLODIPine [Norvasc] 5 mg PO DAILY #30 tablet LORazepam [Ativan] 1 mg PO BID PRN #60 tab PRN Reason: Anxiety Omeprazole [PriLOSEC] 40 mg PO DAILY #60 <Tania Pelletier - Last Filed: 05/08/17 08:30> Date of Encounter: 05/07/17 Time of Encounter: 18:00 - Time Spent With Patient Total time spent is greater than 50% in coordination of care (as documented) at patient's floor/unit and/or counseling patient: GI History of Present Illness - Data of Consult Requesting Physician: Thai Stewart DO - Consult Narrative History of present illness: Ms. Conroy is a 67 year old female - Constitutional Vitals: Temp Pulse Resp BP Pulse Ox 98.9 F 71 15 136/72 93 05/07/17 17:17 05/07/17 17:17 05/07/17 17:17 05/07/17 17:17 05/07/17 17:17 Results - Labs CBC & Chem 7: 05/07/17 03:25 05/07/17 03:25 Labs: Last Result Calcium 9.6 mg/dL (8.6-10.8) 05/07/17 03:25 Troponin I 0.01 ng/mL (0-0.03) 05/06/17 05:06 Triglycerides 92 mg/dL (< 150) 05/06/17 05:06 Entire Visit Hgb 14.6 g/dL (11.5-15.4) 05/07/17 03:25 Hct 45.3 % (35.3-44.9) H 05/07/17 03:25 PT 11.6 Seconds (9.4-12.1) 05/05/17 16:54 Total Bilirubin 0.6 mg/dL (0.2-1.2) 05/05/17 16:54 AST 59 Units/L (5-34) H 05/05/17 16:54 ALT 42 Units/L (0-55) 05/05/17 16:54 Lipase 14 Units/L (8-78) 05/05/17 16:54 - ABG ABG results: PT/INR, D-dimer PT 11.6 Seconds (9.4-12.1) 05/05/17 16:54 - Attending Attestation I examined this patient and my medical decision-making was reviewed with the Resident Physician. I agree with the documented findings, disposition and treatment plan as described except to the extent set forth below. Pt with Hx of Gatric banding, now with abd epigastric pain. R/o GI/stomach causes of pain. CT chest/upper abd unremarkable.
--- NOTE | 2017-05-07 14:31 | Anesthesia Evaluation PreOp ---
Date of Encounter: 05/07/17 Time of Encounter: 14:29 - Past History Planned Operation: EGD Cardiac History: HTN, Hyperlipidemia TOOL AND DIE ENGINEER History: Other (Anxiety) Other Medical History: Diabetes Type II, GERD Anesthesia History: No Prior Anesthetic Complications, Past Anesthesia (Radha, CHLOE ) : No Alcohol Use: none Drug use: none Medications and Allergies Hydrocodone/Acetaminophen [Vicodin Es 7.5-300 mg Tablet] 1 each PO Q4H PRN #12 tab 07/25/16 [Rx] Allopurinol [Zyloprim 100 MG] 100 mg PO BID 05/05/17 [History] Atenolol 100 mg PO DAILY 05/05/17 [History] Escitalopram [Lexapro] 1 tab PO DAILY 05/05/17 [History] Fenofibrate Nanocrystallized [Triglide] 160 mg PO DAILY 05/05/17 [History] Glimepiride [Amaryl] 2 mg PO DAILY 05/05/17 [History] Lisinopril [Zestril] 20 mg PO DAILY 05/05/17 [History] Losartan Potassium [Cozaar] 100 mg PO DAILY 05/05/17 [History] Meloxicam [Mobic] 7.5 mg PO DAILY 05/05/17 [History] Metformin HCl [Metformin HCl ER] 1 cap PO QID 05/05/17 [History] Omeprazole [PriLOSEC] 40 mg PO DAILY 05/05/17 [History] Triamterene/HCTZ 37.5/25mg [Dyazide] 1 tab PO DAILY 05/05/17 [History] Zolpidem [Ambien] 10 mg PO HS 05/05/17 [History] metroNIDAZOLE [Metronidazole] 500 mg PO BID 05/05/17 [History] 3 Allergy/AdvReac Type Severity Reaction Status Date / Time No Known Allergies Allergy Verified 07/25/16 17:27 - Meds/Allergy Pre-op Review Medications Reviewed: Yes Allergies Reviewed: Yes Beta Blockers on Current Med List: Yes If Beta Blockers taken, Date/Time (Last Dose taken): 05/06/17 @ 22:57 Anesthesia Results - Labs 05/07/17 03:25 05/07/17 03:25 echocardiogram w enhance 05/06/17 Impressions: Technically sub-optimal due to poor echocardiographic windows. LVEF 55-60%. Normal LV chamber size, wall thickness and function. Mild left ventricular diastolic dysfunction. Grossly, mildly dilated right ventricle with normal function. Moderate pulmonary hypertension. Estimated RVSP is 51 mmHg. No obvious significant valvular dysfunction Anesthesia Exam O2 Sat Weight 128.2 kg O2 Sat by Pulse Oximetry 96 O2 Sat by Pulse Oximetry 96 O2 Sat by Pulse Oximetry 97 O2 Sat by Pulse Oximetry 96 O2 Sat by Pulse Oximetry 96 O2 Sat by Pulse Oximetry 94 Vital Signs Temp Pulse Resp BP Pulse Ox 98.9 F 92 16 199/97 96 05/05/17 16:21 05/05/17 16:21 05/05/17 16:21 05/05/17 16:21 05/05/17 16:21 Vital Signs/O2 Sat, Most Current Temp Pulse Resp BP Pulse Ox 98.2 F 71 16 171/86 96 05/07/17 14:28 05/07/17 14:28 05/07/17 14:28 05/07/17 14:28 05/07/17 14:28 Height: 5'5'' Weight: 282# NPO (# of Hours): > 8 hrs Pain Scale: 0 - HEENT Pupil (Motor): Pupils equal, EOMI Mallampati: III Teeth: Normal Oral Opening: Greater than 3 - TOOL AND DIE ENGINEER LOC: Oriented TOOL AND DIE ENGINEER Motor: Normal RUE, Normal LUE, Normal RLE, Normal LLE, Normal Face TOOL AND DIE ENGINEER Sensory: Normal: RUE, LUE, RLE, LLE, Face - Cardiac Rhythm: Regular Murmur: None JVD: No Carotid Bruit: No - Pulmonary Breath Sounds: bilateral Clear Respiratory Effort: Symmetrical Anesthesia Assess/Plan ASA Score: 3 Modified Nayan Scale for Level of Consciousness: Cooperative, oriented, and tranquil Anesthetic Plan: MAC Autologous Blood: Yes Monitoring Plan: Standard Monitors Recovery Plan: Other
[2017-05-07] MEDS ORDERED: Tetracaine/Benzocaine/Butamben 200MG/SPRAY (100SPY/BOT) MM ONE (14:32)
[2017-05-07] MEDS ORDERED: Simethicone 40 MG/0.6 ML MLS IR ONE (14:32)
--- NOTE | 2017-05-07 16:52 | Discharge Summary ---
Date of Encounter: 05/07/17 Time of Encounter: 16:46 - Discharge Diagnosis (1) GERD without esophagitis Priority: Primary Status: Acute (2) Chest pain Priority: Primary Status: Resolved Qualifiers: Chest pain type: other chest pain Qualified Code(s): R07.89 - Other chest pain; R07.8 - Other chest pain (3) Hypertension Priority: Secondary Status: Chronic Qualifiers: Hypertension type: essential hypertension Qualified Code(s): I10 - Essential (primary) hypertension (4) Diabetes Priority: Secondary Status: Chronic Qualifiers: Diabetes mellitus type: type 2 Diabetes mellitus complication status: with hyperglycemia Diabetes mellitus termite exterminator insulin use: without termite exterminator use Qualified Code(s): E11.65 - Type 2 diabetes mellitus with hyperglycemia (5) Hyperlipidemia Priority: Secondary Status: Chronic Qualifiers: Hyperlipidemia type: pure hyperglyceridemia Qualified Code(s): E78.1 - Pure hyperglyceridemia (6) Anxiety Priority: Secondary Status: Chronic (7) Morbid obesity with BMI of 45.0-49.9, adult Priority: Secondary Status: Chronic - Discharge Medications Prescriptions: amLODIPine [Norvasc] 5 mg PO DAILY #30 tablet RX: LORazepam [Ativan] 1 mg PO BID PRN #60 tab PRN Reason: Anxiety RX: Omeprazole [PriLOSEC] 40 mg PO DAILY #60 Home Medications: RX: Hydrocodone/Acetaminophen [Vicodin Es 7.5-300 mg Tablet] 1 each PO Q4H PRN # 12 tab 07/25/16 [Rx] RX: Allopurinol [Zyloprim 100 MG] 100 mg PO BID 05/05/17 [History] RX: Atenolol 100 mg PO DAILY 05/05/17 [History] RX: Escitalopram [Lexapro] 1 tab PO DAILY 05/05/17 [History] RX: Fenofibrate Nanocrystallized [Triglide] 160 mg PO DAILY 05/05/17 [History] RX: Glimepiride [Amaryl] 2 mg PO DAILY 05/05/17 [History] RX: Losartan Potassium [Cozaar] 100 mg PO DAILY 05/05/17 [History] RX: Meloxicam [Mobic] 7.5 mg PO DAILY 05/05/17 [History] RX: Metformin HCl [Metformin HCl ER] 1 cap PO QID 05/05/17 [History] RX: Triamterene/HCTZ 37.5/25mg [Dyazide] 1 tab PO DAILY 05/05/17 [History] RX: Zolpidem [Ambien] 10 mg PO HS 05/05/17 [History] RX: Aspirin 81 mg PO DAILY 05/07/17 [Rx] RX: LORazepam [Ativan] 1 mg PO BID PRN #60 tab 05/07/17 [Rx] RX: Omeprazole [PriLOSEC] 40 mg PO DAILY #60 05/07/17 [Rx] amLODIPine [Norvasc] 5 mg PO DAILY #30 tablet 05/07/17 [Rx] Allergies/Adverse Reactions: 3 Allergy/AdvReac Type Severity Reaction Status Date / Time No Known Allergies Allergy Verified 07/25/16 17:27 Procedures/tests Complete & Pending: Procedures Performed prior 72 hours Category Date Time Status EV echocardiogram w enhance Routine Y 05/05/17 20:48 Completed - Notes to Outpatient Provider Pt is on 4 BP agents and still elevated. Will need further work up. Also renal function fluctuates. Date of admission: 05/05/17 18:49 Primary care physician: PCP NONE Consults: 05/07/17 10:34 Consult to Gastroenterology [CONS] Routine Consulting Provider: Gastroenterology Amara Reason for Consult: abdominal burning radiating upwards, previous histroy of hiatal hernia, some improvement on protonix. Call Completed: Yes Discharging clinician: Thai Stewart Anticipated date of discharge: 05/07/17 - Patient Status Disposition: Home, Self-Care Condition: Good Functional capacity at discharge: independent ambulation Overall status at discharge: patient is progressing back to baseline - Discharge Instructions Follow Up With: NONE,PCP [Primary Care Provider] - - Diet and Activity Activity: increase activity as tolerated Diet: advance to your usual diet Hospital course: Ms. Conroy is a 67 year old female with hx of HTN and DM presented to ED with chest pain. She has been noticing symptoms for last few weeks and has gotten progressively worse. Ativan was discontinued about 5weeks ago. She was placed in observation for further eval and treatment. Ms. Conroy was placed in observation. Her troponins were negative. She felt the issue was more GI related as she has been off her PPI. She had a stress test in the recent past which was negative (nuclear treadmill). She underwent EGD which showed hiatel hernia but otherwise negative. She was restarted on PPI with improvement. She was also started on Ativan again. Of note her BP was elevated despite 4 agents. She had recently been placed on Lisinopril (with Cozaar). On 05/07 her creatinine was somewhat higher after increasing the Lisinopril the day before. Lisinopril has been discontinued and Norvasc started. She will need further monitoring of her renal function and evaluation of her persistent HTN. On 05/07 she felt well after EGD. She was afebrile with stable vitals and ready for discharge home. - Time Spent with Patient Total time spent providing and/or coordinating discharge services: 40min - Constitutional Vitals: Temp Pulse Resp BP Pulse Ox 98.2 F 71 16 171/86 96 05/07/17 14:28 05/07/17 14:28 05/07/17 14:28 05/07/17 14:28 05/07/17 14:28 General appearance: Present: A&O X 3, morbidly obese, pleasant, answers questions appropriately - Head Head exam: Present: normocephalic - Eye Eye exam: Present: conjuntiva pink - ENT ENT exam: Present: mucous membranes moist - Respiratory Respiratory exam: Absent: rales, wheezes - Cardiovascular Cardiovascular exam: Present: RRR - GI/Abdominal GI/Abdominal exam: Present: soft. Absent: tenderness - Extremities Exam Extremities exam: Present: warm. Absent: tenderness - Neurological Exam Neurological exam: Present: alert, oriented X3 - Skin Skin exam: Present: warm. Absent: rash
[2017-05-07 17:18] VITALS: BP 136/72
[2017-05-07] MEDS ORDERED: *HR* Propofol 200 MG/20 ML VIAL IVP ONE (18:44)
--- NOTE | 2017-05-07 21:48 | Electrocardiograph Report ---
[address] [place] [address] Test Date: 2017-05-05 Pat Name: Mary Conroy Department: 104 Room: [facility] Gender: F Rail Maintenance Worker: EKP : 1950 Requested By: Westley Islas Order Number: [id number] Reading MD: Dami Witt MD Measurements Intervals [place] Rate: 92 P: 34 MN: 164 QRS: 1 QRSD: 89 T: 59 QT: 378 QTc: 428 Interpretive Statements SINUS RHYTHM LOW QRS VOLTAGE IN PRECORDIAL LEADS Poor R wave progression INFERIOR MYOCARDIAL INFARCTION, PROBABLY OLD Electronically Signed On 05-07-2017 21:46:29 EDT by Dami Witt MD
== END 2017-05-07 18:45 | disposition home or self-care (01) ==
LOC: EMEROO 16:07 → 3NENU 16:07 → SUATTDRO 18:49 → 3NENU 20:03
PROVIDERS: ADMIT Internal Medicine; ATTEND Internal Medicine
PROC: ENDOEBX (2017-05-07 17:00)